=== PATIENT | female | born 1955 | race Caucasian/White ===

== ENCOUNTER 2020-04-11 08:40 | Outpatient (CLI) | payer MEDICARE, MEDICAID, SELFPAY ==
--- NOTE | 2020-04-11 08:44 | CT_ITS ---
WS: [id number] CT LUNG CANCER SCREENING DLP: 87.9 mGy.cm DIvol: 2.42 mGy CLINICAL INFORMATION SCREENING VISIT: Baseline COMPARISON: None available. FINDINGS Diagnostic quality: Satisfactory Comments: None. Lung Nodules: Lobulated 10 mm nodule LEFT upper lobe contains a branchlike pattern and is partially c alcified. There may be some contain macroscopic fat. This nodule is best seen on image 132 of series 3. There is an additional benign granuloma in the LEFT upper lobe. Lungs: Mild hyperinflation. Heart: Normal heart size. Moderate calcifications scattered within the coronary arteries. Greatest bu rden in the RIGHT coronary and the LEFT anterior descending coronary artery. Other findings: Mild atherosclerosis aorta. Pulmonary artery size is equal to the aorta. Pulmonary ar devin measures 3.0 cm in diameter. Benign calcifications in the hilar regions. Thoracic spondylosis. CT/CT lung screening [id number] IMPRESSION: LUNG-RADS: 4A-Probably Suspicious FOLLOW UP: 6 Month LDCT Nodule in the LEFT upper lobe may be a benign hamartoma or incompletely calcifi ed granuloma. Due to its size 6 month follow-up CT is recommended.
== END 2020-04-11 08:41 | disposition home or self-care (01) ==
LOC: CT 08:41
PROVIDERS: PCP Internal Medicine; Visit Provider Internal Medicine
DX: Z12.2 Encounter for screening for malignant neoplasm of respiratory organs (principal); F17.210 Nicotine dependence, cigarettes, uncomplicated; I70.0 Atherosclerosis of aorta; R91.1 Solitary pulmonary nodule
CPT/HCPCS: G0297

== ENCOUNTER 2021-02-13 09:02 | Outpatient (CLI) | payer MEDICARE, SELFPAY ==
--- NOTE | 2021-02-13 09:09 | CT_ITS ---
WS: [id number] Exam: CT chest w con* [id number] Date/Time of Exam: 02/13/2021 9:10 AM Reason For Exam: PULMONARY NODULE DLP: 651.[address] scans at [facility] use at least one of these dose optimization techniques: automat ed exposure control; mA and/or kV adjustment per patient size (includes targeted exams where dose is matched to clinical indication); or iterative reconstruction. 100 mL of nonionic contrast administere d intravenously. Compared to screening lung CT scan performed 04/11/2020. Previously noted 1 cm lobulated nodule in the upper lobe of the left lung shows interval calcificatio n since the previous study and most likely represents a calcifying granuloma. An additional 8 mm calc ified nodule seen in the upper lobe of the left lung. No new suspicious masses or nodules have develo ped since the prior study. No mediastinal or hilar lymphadenopathy. There are additional scattered gr anulomas in both lungs. No infiltrates are seen. No pleural or pericardial effusion. The airway is pa tent. The thoracic aorta is normal in caliber. Mild coronary artery calcifications. The central pulmo nary arteries are clear. CT sections the upper abdomen are unremarkable. No destructive bone lesions or significant chest wall defects. Normal thyroid tissue. CT/CT chest w con* [id number] IMPRESSION: 1. Previously noted 1 cm bilobulated nodule in the left upper lobe shows interv al calcification since prior study and most likely represents a calcifying gran uloma. No new suspicious nodules or masses have developed since the prior study . There is no lymphadenopathy in the chest.
[2021-02-13] MEDS: iohexol 300 mg/mL 100 mL Btl IV (09:30)
== END 2021-02-13 09:03 | disposition home or self-care (01) ==
PROVIDERS: PCP Internal Medicine; Visit Provider Internal Medicine
DX: R91.1 Solitary pulmonary nodule (principal)
CPT/HCPCS: 71260; Q9967

== ENCOUNTER 2021-12-21 13:09 | Outpatient (CLI) | payer MEDICARE, SELFPAY ==
--- NOTE | 2021-12-21 13:25 | CT_ITS ---
WS: [id number] CT CHEST WITH INTRAVENOUS CONTRAST HISTORY: PULMONARY NODULE TECHNIQUE: Contiguous 5 mm axial imaging performed on the thorax. Coronal and sagittal reformats are submitted. All CT scans at [facility] use at least one of these dose optimization techniques: automated exposure control; mA and/or kV adjustment per patient size (includes targeted exams where dose is matched to clinical indication); or iterative reconstruction. CONTRAST: Omnipaque 300; 95 mL IV. DLP: 651.31 mGy.cm COMPARISON: 04/11/2020, 02/13/2021 Lungs and central airway: There are 2 calcified nodules in the LEFT upper lobe. Previously described nodule that was partially calcified has continued to calcified. No soft tissue mass. Both of these no dules appear benign and probably due to granulomatous disease. Additional benign calcified granuloma at the RIGHT lung base. Pleura: Normal. No pleural effusion. Heart and pericardium: Mildly enlarged LEFT ventricle. No pericardial effusion. Mediastinum and lexie: No mediastinum or hilar adenopathy. Probably probably lymphoid tissue at the hi lar regions. No enlarged lymph nodes. Vessels: Pulmonary artery size is mildly dilated 3.1 cm. Mild ectasia ascending thoracic aorta is 3.9 cm. No aneurysm. Mild atherosclerotic plaque within the aorta. Chest wall and lower neck: No soft tissue masses.0 Upper abdomen: Small hiatal hernia. Hepatic and splenic granulomata. Prior cholecystectomy. Osseous structures: Thoracic spondylosis. No destructive bone lesions. CT/CT chest w con* [id number] IMPRESSION: 1. Calcified nodules in the LEFT upper lobe are unchanged and consistent with benign granulomatous disease. No associated soft tissue mass with either lesion . 2. Atherosclerosis aorta. No aneurysm. 3. Mild LEFT ventricle enlargement. 4. Prior cholecystectomy.
[2021-12-21 14:21] LABS: Blood Urea Nitrogen 14 mg/dL (8-23); Glomerular Filtration Rate 83.2 mL/min (90-130)
[2021-12-21] MEDS: iohexol 300 mg/mL 100 mL Btl IV (14:34)
== END 2021-12-21 13:10 | disposition home or self-care (01) ==
LOC: RAD 13:12
PROVIDERS: PCP Internal Medicine; Visit Provider Internal Medicine
DX: R91.1 Solitary pulmonary nodule (principal); R91.8 Other nonspecific abnormal finding of lung field; Z90.49 Acquired absence of other specified parts of digestive tract; I70.0 Atherosclerosis of aorta
CPT/HCPCS: 71260; 82565; 84520